=== PATIENT | female | born 1995 | race African-American/Black ===

== ENCOUNTER 2020-08-08 17:15 | Emergency (ER) | payer OTHER ==
[2020-08-09 12:10] LABS: SARS-CoV-2 MS2 Positive; SARS-CoV-2 N Gene Positive; SARS-CoV-2 S Gene Positive; SARS-CoV-2 by NAA DETECTED (NotDetected); SARS-CoV-2 orf1ab Positive
== END 2020-08-08 18:32 | disposition home or self-care (01) ==
LOC: BURERS 17:15
DX: U07.1 COVID-19 (principal); F17.210 Nicotine dependence, cigarettes, uncomplicated
CPT/HCPCS: 87635; 87804; 99283; U0003

== ENCOUNTER 2021-01-11 13:45 | Emergency (ER) | payer SELFPAY ==
[2021-01-11] MEDS ORDERED: Ibuprofen 200 MG TAB ONE (14:00)
== END 2021-01-11 14:04 | disposition home or self-care (01) ==
LOC: BURERS 13:45
DX: J02.9 Acute pharyngitis, unspecified (principal)
CPT/HCPCS: 87081; 87430; 99281